=== PATIENT | female | born 1985 | race Caucasian/White ===

== ENCOUNTER 2025-06-04 09:47 | Outpatient (CLI) | payer BC, SELFPAY ==
--- NOTE | ~2025-06-04 | US_ITS ---
EXAMINATION: US pelvic complete w TV INDICATION: Excessive and frequent menstruation. Pelvic pain. Comparison:Ultrasound dated 04/10/2015 TECHNIQUE: Multiple transabdominal and endovaginal sonographic images of the pelvis performed. FINDINGS: The uterus measures 8.5 x 4.5 x 5.3 cm. There is a small fibroid anteriorly in the fundus measuring 7 mm. The endometrial complex measures 8 mm. The right ovary measures 3.7 x 3 x 2.6 cm and the left ovary measures 2.7 x 1.7 x 2.1 cm. There are small follicles in each ovary. Normal doppler signal in both ovaries. There is no free fluid in the pelvis. There are no abnormal masses seen on either side. IMPRESSION: 1. Small uterine fibroid measuring 7 mm. Otherwise, unremarkable pelvic ultrasound. Reviewed, dictated and finalized at location O. IMPRESSION: 1. Small uterine fibroid measuring 7 mm. Otherwise, unremarkable pelvic ultraso und.
== END 2025-06-04 09:48 | disposition home or self-care (01) ==
LOC: MICIMG 09:48
PROVIDERS: PCP Family Medicine; Visit Provider Nurse Practitioner Obstetrics & Gynecology
DX: D25.9 Leiomyoma of uterus, unspecified (principal); N92.0 Excessive and frequent menstruation with regular cycle
CPT/HCPCS: 76830; 76856